=== PATIENT | female | born 1955 | race Hispanic/Latino ===

== ENCOUNTER 2018-01-23 08:04 | Outpatient (CLI) | payer OTHER | END 2018-01-23 08:05 | disposition home or self-care (01) | LOC: BICMAMMO 08:04 | PROVIDERS: ATTEND Family Medicine | DX: Z12.31 Encounter for screening mammogram for malignant neoplasm of breast (principal); Z80.3 Family history of malignant neoplasm of breast | CPT/HCPCS: 77063; 77067 ==

== ENCOUNTER 2018-10-20 13:38 | Outpatient (CLI) | payer OTHER ==
--- NOTE | 2018-10-20 14:50 | ULT ---
THYROID ULTRASOUND: HISTORY: Left lobe thyroid nodule. FINDINGS: Real-time imaging of the right and left lobes of the thyroid were performed. The right lobe measures 1.5 x 1.6 x 5.2 cm and the left lobe 1.3 x 1.3 x 4.6 cm. A complex 7 mm cyst is seen involving the upper pole of the left lobe of the thyroid. IMPRESSION: 1. A 7 mm complex left lobe thyroid cyst. 2. Mildly heterogeneous gland. POS: [facility]
== END 2018-10-20 13:39 | disposition home or self-care (01) ==
LOC: BICULT 13:38
PROVIDERS: ATTEND Internal Medicine Endocrinology, Diabetes & Metabolism
DX: E04.1 Nontoxic single thyroid nodule (principal)
CPT/HCPCS: 76536

== ENCOUNTER 2018-10-29 08:14 | Outpatient (CLI) | payer OTHER ==
--- NOTE | 2018-10-29 09:56 | CT ---
CT OF ABDOMEN AND PELVIS PERFORMED WITHOUT CONTRAST ENHANCEMENT: History: Left lower quadrant pain which radiates across the pelvis to the right lower quadrant since July. History of diverticulitis, cholecystectomy and partial hysterectomy. FINDINGS: The lung base are clear. The liver, spleen, and pancreas regions appear unremarkable. The gallbladder has been removed. Right and left adrenal glands and right and left kidneys are normal in size. No renal calculi. No sig ns of obstruction. No significant periaortic or mesenteric lymphadenopathy. CT OF PELVIS PERFORMED WITHOUT CONTRAST ENHANCEMENT: The uterus appear to have been removed. The appendix is not definitely identified but no inflammatory process. No pelvic lymphadenopathy or mass. No evidence for diverticulitis. IMPRESSION: No acute abnormalities of the abdomen or pelvis. POS: [facility]
== END 2018-10-29 08:15 | disposition home or self-care (01) ==
LOC: BICCT 08:14
PROVIDERS: ATTEND Family Medicine
DX: K57.92 Diverticulitis of intestine, part unspecified, without perforation or abscess without bleeding (principal)
CPT/HCPCS: 74176

== ENCOUNTER 2018-11-03 10:14 | Outpatient (CLI) | payer OTHER ==
--- NOTE | 2018-11-03 11:21 | RAD ---
SINGLE VIEW OF THE PELVIS: Comparison: None. History: Low back pain. Bilateral hip pain. FINDINGS: Single view of the pelvis shows no evidence of acute fracture or dislocation. No significant degenera tive changes are seen in either hip. IMPRESSION: Unremarkable exam. POS: [facility]
--- NOTE | 2018-11-03 11:22 | RAD ---
RIGHT HIP TWO VIEWS: HISTORY: Bilateral hip pain. COMPARISON: Left hip radiograph from 11/03/2018. FINDINGS: Two views of the right hip show no evidence of acute fracture or dislocation. No degenerative change s are seen. No soft tissue swelling is present. IMPRESSION: Unremarkable examination. POS: [facility]
--- NOTE | 2018-11-03 11:22 | RAD ---
TWO VIEWS LEFT HIP: History: Left hip pain. FINDINGS: Two views left hip shows no evidence of acute fracture or dislocation. No degenerative changes are se en. IMPRESSION: Unremarkable exam. POS: [facility]
--- NOTE | 2018-11-03 11:49 | RAD ---
LUMBAR SPINE SERIES TWO VIEWS: History: Back and left hip pain. FINDINGS: Vertebral bodies are normal in height. Small osteophytes are seen along the course of the spine. Ther e is suggestion of some disc narrowing at L5-S1. There are degenerative facet changes noted. Pedicles are intact. No spondylolisthesis. IMPRESSION: Mild arthritic changes of the spine. POS: [facility]
== END 2018-11-03 10:15 | disposition home or self-care (01) ==
LOC: BICRAD 10:14
PROVIDERS: ATTEND Internal Medicine Rheumatology
DX: M25.552 Pain in left hip (principal); M54.5 Low back pain; M46.96 Unspecified inflammatory spondylopathy, lumbar region
CPT/HCPCS: 72100; 72170

== ENCOUNTER 2019-05-10 15:28 | Outpatient (CLI) | payer OTHER ==
--- NOTE | 2019-05-10 15:50 | MMO ---
Bilateral MAMMO Bilat Screen [facility]. CLINICAL HISTORY: Patient is 63 years old and is seen for screening. The patient has the following family history of breast cancer: sister, at age 50. The patient has no personal history of cancer. The patient has a history of bilateral Cyst Aspiration in 1970 - benign. VIEWS: The views performed were: bilateral craniocaudal with tomosynthesis and bilateral mediolateral oblique with tomosynthesis. FILMS COMPARED: The present examination has been compared to prior imaging studies performed at [facility] on 01/23/2018, and at [facility] on 10/25/2014, 11/23/2015 and 11/27/2016. MAMMOGRAM FINDINGS: The breasts are heterogeneously dense, which could obscure a lesion on mammography. There are no suspicious masses, suspicious calcifications, or new areas of architectural distortion. IMPRESSION: THERE IS NO MAMMOGRAPHIC EVIDENCE OF MALIGNANCY. A ROUTINE FOLLOW-UP MAMMOGRAM IN 1 YEAR IS RECOMMENDED. THE RESULTS OF THIS EXAM WERE SENT TO THE PATIENT. ACR BI-RADS Category 1 - Negative MAMMOGRAPHY NOTE: 1. A negative mammogram report should not delay a biopsy if a dominant of clinically suspicious mass is present. 2. Approximately 10% to 15% of breast cancers are not detected by mammography. 3. Adenosis and dense breasts may obscure an underlying neoplasm. Reported by: SOCRATES MATTSON MD Electonically Signed: [id number]
== END 2019-05-10 15:29 | disposition home or self-care (01) ==
LOC: BICMAMMO 15:28
PROVIDERS: ATTEND Family Medicine
DX: Z12.31 Encounter for screening mammogram for malignant neoplasm of breast (principal); Z80.3 Family history of malignant neoplasm of breast
CPT/HCPCS: 77063; 77067

== ENCOUNTER 2021-08-31 08:10 | Outpatient (CLI) | payer MEDICARE, BC | END 2021-08-31 08:11 | disposition home or self-care (01) | LOC: BICMAMMO 08:10 | PROVIDERS: ATTEND Internal Medicine Rheumatology | DX: M25.552 Pain in left hip (principal); M54.50 Low back pain, unspecified; M85.88 Other specified disorders of bone density and structure, other site; M47.816 Spondylosis without myelopathy or radiculopathy, lumbar region; M16.12 Unilateral primary osteoarthritis, left hip | CPT/HCPCS: 72100; 77080 ==

== ENCOUNTER 2022-07-16 07:50 | Outpatient (CLI) | payer MEDICARE, BC | END 2022-07-16 07:51 | disposition home or self-care (01) | LOC: BICMAMMO 07:50 | PROVIDERS: ATTEND Family Medicine | DX: Z12.31 Encounter for screening mammogram for malignant neoplasm of breast (principal); Z80.3 Family history of malignant neoplasm of breast; Z98.890 Other specified postprocedural states | CPT/HCPCS: 77063; 77067 ==

== ENCOUNTER 2023-01-28 12:01 | Outpatient (CLI) | payer MEDICARE, BC | END 2023-01-28 12:02 | disposition home or self-care (01) | LOC: BICRAD 12:01 | PROVIDERS: ATTEND Family Medicine | DX: R07.89 Other chest pain (principal); Z79.899 Other long term (current) drug therapy; Z13.1 Encounter for screening for diabetes mellitus; E03.9 Hypothyroidism, unspecified | CPT/HCPCS: 36415; 71046; 80053; 83036; 84443; 85025 ==

== ENCOUNTER 2024-09-23 14:47 | Outpatient (CLI) | payer MEDICARE, BC | END 2024-09-23 14:48 | disposition home or self-care (01) | LOC: BICMAMMO 14:47 | PROVIDERS: ATTEND Family Medicine | DX: Z12.31 Encounter for screening mammogram for malignant neoplasm of breast (principal); Z80.3 Family history of malignant neoplasm of breast; Z91.89 Other specified personal risk factors, not elsewhere classified | CPT/HCPCS: 77063; 77067 ==

== ENCOUNTER 2025-08-30 08:26 | Outpatient (CLI) | payer MEDICARE, BC | END 2025-08-30 08:27 | disposition home or self-care (01) | LOC: BICRAD 08:26 | PROVIDERS: ATTEND Internal Medicine Rheumatology | DX: M54.6 Pain in thoracic spine (principal); M54.2 Cervicalgia; M06.09 Rheumatoid arthritis without rheumatoid factor, multiple sites; M47.814 Spondylosis without myelopathy or radiculopathy, thoracic region | CPT/HCPCS: 72052; 72072 ==

== ENCOUNTER 2025-09-27 09:27 | Outpatient (CLI) | payer MEDICARE, BC | END 2025-09-27 09:28 | disposition home or self-care (01) | LOC: BICMAMMO 09:27 | PROVIDERS: ATTEND Family Medicine | DX: Z12.31 Encounter for screening mammogram for malignant neoplasm of breast (principal); Z80.3 Family history of malignant neoplasm of breast; R92.333 Mammographic heterogeneous density, bilateral breasts | CPT/HCPCS: 77063; 77067 ==